=== PATIENT | female | born 1995 | race Caucasian/White ===

== ENCOUNTER 2017-09-20 17:52 | Emergency (ER) | payer OTHER ==
--- NOTE | 2017-09-20 18:23 | EDPHY ---
H & P Smoking Status: Never smoked Time Seen by Provider: 09/20/17 18:16 HPI/ROS: CHIEF COMPLAINT: Left finger laceration HISTORY OF PRESENT ILLNESS: 21-year-old female, right-hand dominant with up-to- date tetanus sustained accidental laceration left middle digit dorsal aspect when she was cutting bread this evening. No paresthesia. No sensory motor deficit. No foreign body sensation. PHYSICAL EXAM (Prior to examination, patient consented to physical exam, hands were washed and my usual and customary physical exam procedures followed) 1) GENERAL: Well-developed, well-nourished, alert and oriented. Appears to be in no acute distress. 2) HEAD: Normocephalic 3) HEENT: sclera anicteric 4) LUNGS: Breathing comfortably. 5) SKIN: Left middle digit dorsal aspect at the D IP joint 1.5 cm her well- demarcated laceration 6) MUSCULOSKELETAL: Flexor extensor function grossly intact at the MCP PIP D IP 7) NEUROLOGIC: Two-point discrimination intact, full sensation distally (Josephine,Nany Suze) Constitutional: Initial Vital Signs Temperature (C) 36.7 C 09/20/17 18:06 Heart Rate 72 09/20/17 18:06 Respiratory Rate 17 09/20/17 18:06 Blood Pressure 104/70 09/20/17 18:06 O2 Sat (%) 98 09/20/17 18:06 O2 Delivery Mode Room Air Allergies/Adverse Reactions: acetaminophen [From Vicodin] Allergy (Verified 09/20/17 18:05) hydrocodone [From Vicodin] Allergy (Verified 09/20/17 18:05) Home Medications: Medication Instructions Recorded [facility] 09/20/17 MDM/Departure - [facility] Procedures: Procedure: Laceration repair. I explained the indications, risks and benefits for both laceration repair and anesthetic administration. Verbal consent was obtained from the patient . The laceration on the left middle digit was anesthetized using 0.5% bupivicaine without epinephrine digital nerve block. After anesthetic administered the patient was observed for a period of time and had no apparent adverse effects. The wound was cleaned, prepped, draped in normal sterile fashion and explored to its base. No foreign body seen, no foreign bodies palpated. There were no deep structures involved. No tendon injury was identified. The wound was repaired with 3 simple interrupted 5 O Ethilon suture. The wound repair was simple. The procedure was performed by myself. Patient has been informed that scarring will occur, although efforts have been made to minimize this. (Nany Burton) ED Course/Re-evaluation: Care of patient under supervision of secondary supervising physician Dr Craft . (Nany Burton) I did not see this patient while she was in the emergency department. However her care was discussed with PA while patient was in the department. I agree with treatment plan and management. IM the secondary supervising physician ( Rdoolfo Craft) - Depart Disposition: Home, Routine, Self-Care Clinical Impression: Finger laceration Qualifiers: Encounter type: initial encounter Finger: middle finger Damage to nail status: without damage Foreign body presence: without foreign body Laterality: left Qualified Code(s): S61.213A - Laceration without foreign body of left middle finger without damage to nail, initial encounter Condition: Good Instructions: Care For Your Stitches (ED), Laceration (ED) Additional Instructions: Return to the ER if you develop redness, swelling, discharge, warmth to the wound, red streaks going up your arm , or any other symptoms that concern you. Referrals: Return, to the ER in 10 days for suture removal [Other] - 09/30/17
[2017-09-20 18:50] VITALS: BP 109/72; PULSE 69; RESP 16; TEMP 98.4; O2SAT 99
== END 2017-09-20 18:50 | disposition home or self-care (01) ==
PROC: 0HQGXZZ Repair Left Hand Skin, External Approach (ICD-10-PCS; principal; 2017-09-20)
DX: S61.213A Laceration without foreign body of left middle finger without damage to nail, initial encounter (principal); X99.1XXA Assault by knife, initial encounter; Y93.89 Activity, other specified